=== PATIENT | male | born 1975 | race African-American/Black ===

== ENCOUNTER 2017-06-29 16:41 | Emergency (ER) | payer MEDICARE, OTHER ==
[~2017-06-29] VITALS: Ht 172.7 cm; Wt 90.4 kg
[2017-06-29 16:46] VITALS: Ht 172.7 cm; Wt 90.4 kg
--- NOTE | 2017-06-29 17:32 | ERD ---
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 Patient denies history of hayfever symptoms or asthma. Has not tried any [id number] medication for temporary relief of symptoms. Denies fever or chills. ROS All systems reviewed and are negative except as per history of present illness. Physical Exam Vitals Vital Signs Date Time Temp Pulse Resp B/P Pulse Ox O2 Delivery O2 Flow Rate FiO2 06/29/17 16:46 98.9 121 20 136/91 99 Vitals stable, triage notes reviewed Physical Exam Const: Well-nourished well-hydrated well-appearing 41-year-old male patient no acute distress Head: Eyes: Normal Conjunctiva ENT: Right tympanic membrane is dull, retracted, left tympanic membrane is not visualized related to cerumen impaction, nasal mucosa is edematous, turbinates +3, septal wall on left naris is red, no maxillary or frontal sinus tenderness, pharynx is pale, injected, tongue is midline, uvula rises and falls with pronation. Neck: Full range of motion..~ No meningismus. Resp: Is rises and falls symmetrically, clear to auscultation bilaterally, no rales wheezes or rhonchi, no egophony Cardio: Abd: Skin: Back: Ext: Neur: Awake and alert Psych: Normal Mood and Affect Procedures/MDM This 41-year-old male patient presents to emergency department for evaluation of cough, cough has been worsening over the last 4 days, patient also reports postnasal drip, sneezing, chest tightness, patient reports cough is continuous throughout the day and night, but keeping him awake at night. Patient has no history of smoking, hayfever symptoms, or asthma. Emergency room course includes history and physical exam, exam is unremarkable for bacterial infection , patient likely has a viral infection, or hayfever symptoms, plan to start patient on Claritin, Flonase, and Tessalon Perles. Increase fluids, increase rest, follow-up with primary care physician for reevaluation in 10 days. Return to emergency department for fever, shortness of breath, chest pain. Worsening of symptoms. Patient is stable with no new complaints during ER course, clinically there is no current evidence to suggest meningitis, sepsis, acute abdomen, acute coronary syndromes, pulmonary embolism or any other emergent condition appearing to require further evaluation or hospitalization. I feel the patient is stable for discharge at this time. I have discussed results, examination findings, the treatment plan with the patient and family present prior to discharge. Indications for emergent reevaluation, side effects of medication were also discussed. All questions were answered. Patient verbalizes understanding and agrees with plan of care. Departure Condition: Good Patient Instructions: Adult Self-Care for Colds, Controlling Your Triggers: Allergens Referrals: [facility] Additional Instructions: Thank you for for coming to [facility] for your care today. Please ask your nurse or provider if you have questions about your care today and do not leave until all your questions have been answered. Please use any medications given as directed and follow-up with your doctor (or the doctor you were referred to) in the next 2-3 days. If you do not have a primary care doctor you may follow up at the [facility] [place] (listed below). You may also use motrin and tylenol as needed for fever and/or pain unless instructed otherwise by your provider or nurse. Indications for more urgent follow-up have been discussed, but you may return to the Emergency Department at ANY time for any worrisome or worsening symptoms. If you have abdominal pain, please know that no test or exam you received is perfect and you should follow up within 8 hours for continued pain. If you had any imaging studies today, such as an X-Ray or CT Scan, these studies will be reviewed later by a radiologist. You will be called if there are important findings that were not identified today, so make sure the contact information you provided at registration is correct. If you received any narcotic pain control medicine today, such as Vicodin, Morphine or Dilaudid, your coordination and judgment may be affected for a number of hours. Please do not drive or operate heavy machinery, and you may want someone to assist you at home. If you were given a prescription for narcotic medication, be aware that it is very addictive- use sparingly and only if necessary. KOFI HUMPHREY Jun 29, 2017 17:32
[2017-06-29] MEDS ORDERED: LORA10CA PO (17:45)
[2017-06-29] MEDS ORDERED: BENZ100C70 PO (17:46)
[2017-06-29] MEDS ORDERED: FLUT9.9S NASAL (17:46)
[2017-06-29 19:04] VITALS: PULSE 94; RESP 20; TEMP 98.2
== END 2017-06-29 18:48 | disposition home or self-care (01) ==
LOC: FTE 16:41
DX: R05 Cough (principal); R09.89 Other specified symptoms and signs involving the circulatory and respiratory systems; R06.7 Sneezing; R07.89 Other chest pain
CPT/HCPCS: 99283